=== PATIENT | male | born 1945 | race African-American/Black ===

== ENCOUNTER 2017-07-19 09:26 | Emergency (ER) | payer SELFPAY ==
[~2017-07-19] VITALS: Ht 177.8 cm; Wt 77.1 kg
[2017-07-19] MEDS ORDERED: ACETAMINOPHEN 325 MG TABLET. PO ONE (09:45)
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
[2017-07-19 10:36] VITALS: BP 137/75
[2017-07-19] MEDS ORDERED: TRAM50TA PO (10:38)
== END 2017-07-19 11:00 | disposition home or self-care (01) ==
LOC: ER 09:26
DX: S29.9XXA Unspecified injury of thorax, initial encounter (principal); S93.402A Sprain of unspecified ligament of left ankle, initial encounter; F10.20 Alcohol dependence, uncomplicated; F12.10 Cannabis abuse, uncomplicated; V49.49XA Driver injured in collision with other motor vehicles in traffic accident, initial encounter; Y93.89 Activity, other specified; Y99.8 Other external cause status; Y92.488 Other paved roadways as the place of occurrence of the external cause
CPT/HCPCS: 71101; 73610; 99284

== ENCOUNTER 2018-06-22 14:58 | Emergency (ER) | payer OTHER ==
[~2018-06-22] VITALS: Ht 180.3 cm; Wt 78.0 kg
[~2018-06-22 14:58] MED LIST: TRAM50TA PO
[2018-06-22 16:06] VITALS: BP 160/85
[2018-06-22] MEDS ORDERED: PENI500T PO (17:10)
[2018-06-22] MEDS ORDERED: ACET-704 PO (17:10)
--- NOTE | 2018-06-22 17:10 | PHYS DOC ---
Past Medical History Past Medical History: Hypertension Additional Past Medical Histor: Brain Aneurysm Past Surgical History: Hip Replacement Additional Past Surgical Histo: aneurysm surgery Alcohol Use: Occasionally Drug Use: Marijuana Adult General Chief Complaint Chief Complaint: DENTAL PROBLEM HPI HPI Patient is a 73 year old [f__sex] who presents with [] Review of Systems Review of Systems Constitutional: Denies fever or chills [] Eyes: Denies change in visual acuity, redness, or eye pain [] HENT: Denies nasal congestion or sore throat [] Respiratory: Denies cough or shortness of breath [] Cardiovascular: No additional information not addressed in HPI [] GI: Denies abdominal pain, nausea, vomiting, bloody stools or diarrhea [] : Denies dysuria or hematuria [] Musculoskeletal: Denies back pain or joint pain [] Integument: Denies rash or skin lesions [] Neurologic: Denies headache, focal weakness or sensory changes [] Endocrine: Denies polyuria or polydipsia [] All other systems were reviewed and found to be within normal limits, except as documented in this note. Allergies Allergies Allergies Coded Allergies Type Severity Reaction Last Updated Verified No Known Drug Allergies 04/13/14 No Physical Exam Physical Exam Constitutional: Well developed, well nourished, no acute distress, non-toxic appearance. [] HENT: Normocephalic, atraumatic, bilateral external ears normal, oropharynx moist, no oral exudates, nose normal. [] Eyes: PERRLA, EOMI, conjunctiva normal, no discharge. [] Neck: Normal range of motion, no tenderness, supple, no stridor. [] Cardiovascular:Heart rate regular rhythm, no murmur [] Lungs & Thorax: Bilateral breath sounds clear to auscultation [] Abdomen: Bowel sounds normal, soft, no tenderness, no masses, no pulsatile masses. [] Skin: Warm, dry, no erythema, no rash. [] Back: No tenderness, no CVA tenderness. [] Extremities: No tenderness, no cyanosis, no clubbing, ROM intact, no edema. [] Neurologic: Alert and oriented X 3, normal motor function, normal sensory function, no focal deficits noted. [] Psychologic: Affect normal, judgement normal, mood normal. [] Current Patient Data Vital Signs Vital Signs Date Time Temp Pulse Resp B/P (MAP) Pulse Ox O2 Delivery O2 Flow Rate FiO2 06/22/18 16:06 97.9 81 18 160/85 (110) 98 Room Air 97.9 EKG EKG [] Radiology/Procedures Radiology/Procedures [] Course & Med Decision Making Course & Med Decision Making Pertinent Labs and Imaging studies reviewed. (See chart for details) [] Dragon Disclaimer Dragon Disclaimer This electronic medical record was generated, in whole or in part, using a voice recognition dictation system. Departure Departure Impression: Primary Impression: Pain due to dental caries Additional Impression: Infected dental caries Disposition: HOME, SELF-CARE Condition: STABLE Referrals: ROSALINDA SOTO MD (PCP) Patient Instructions: Dental Caries, Dental Pain, [id number] Additional Instructions: Fill prescriptions and use as directed. Follow up with dentist as discussed, return to ER if symptoms worsen. Scripts Penicillin V Potassium (PENICILLIN V POTASSIUM) 500 Mg Tablet 1 TAB PO QID, #40 TAB Prov: NITIN BAUER APRN 06/22/18 Acetaminophen With Codeine (TYLENOL WITH CODEINE #3 TABLET) 1 Each Tablet 1 TAB PO PRN Q6HRS PRN for PAIN for 3 Days, #12 TAB 0 Refills Prov: NITIN BAUER APRN 06/22/18 Problem Qualifiers NITIN BAUER [employer] Jun 22, 2018 17:10
== END 2018-06-22 17:15 | disposition home or self-care (01) ==
LOC: ER 14:58
DX: K02.9 Dental caries, unspecified (principal); I10 Essential (primary) hypertension; Z96.649 Presence of unspecified artificial hip joint
CPT/HCPCS: 99283

== ENCOUNTER 2020-09-06 08:48 | Emergency (ER) | payer MEDICARE, OTHER ==
[~2020-09-06] VITALS: Ht 180.3 cm; Wt 76.3 kg
[~2020-09-06 08:48] MED LIST changes: +ACET-704 PO; +PENI500T PO
[2020-09-06 08:50] VITALS: BP 131/77
[2020-09-06] MEDS ORDERED: PENI500T PO (09:02)
[2020-09-06] MEDS ORDERED: TRAM50TA PO (09:02)
--- NOTE | 2020-09-06 09:02 | ED.ADGEN ---
Past Medical History Past Medical History: Hypertension Additional Past Medical Histor: Brain Aneurysm Past Surgical History: Hip Replacement Additional Past Surgical Histo: aneurysm surgery Smoking Status: Light Tobacco Smoker Alcohol Use: Occasionally Drug Use: Marijuana General Adult EDM: Chief Complaint: DENTAL PROBLEM HPI: HPI: Patient is a 75 year old male who arrives ambulatory to the emergency department complaining of ongoing dental pain. Patient had some dental work done within the last 6 months for poor dental hygiene which included extractions. Patient states however he has had continued pain and has a consultation with an oral surgeon awaiting him once he secures dental insurance. The patient reports that his pain is specifically in the maxillary segment of his mouth of the left side. The patient states that when the pain happens it is sharp and debilitating. He denies any trauma. He further denies any fevers or swelling. He is awake, alert and nontoxic-appearing. Review of Systems: Review of Systems: Constitutional: Denies fever or chills. [] Eyes: Denies change in visual acuity. [] HENT: Reports of dental pain and poor dental hygiene. Denies nasal congestion or sore throat. [] Respiratory: Denies cough or shortness of breath. [] Cardiovascular: Denies chest pain or edema. [] GI: Denies abdominal pain, nausea, vomiting, bloody stools or diarrhea. [] : Denies dysuria. [] Musculoskeletal: Denies back pain or joint pain. [] Integument: Denies rash. [] Neurologic: Denies headache, focal weakness or sensory changes. [] Endocrine: Denies polyuria or polydipsia. [] Lymphatic: Denies swollen glands. [] Psychiatric: Denies depression or anxiety. [] Allergies: Allergies: Allergies Coded Allergies Type Severity Reaction Last Updated Verified No Known Drug Allergies 04/13/14 No Physical Exam: PE: Constitutional: Well developed, well nourished, no acute distress, non-toxic appearance. [] HENT: Patient has poor dental hygiene with multiple dental caries. There are several eroded teeth in the maxillary segment which are tender upon palpation. There is no swelling of the gums or facial structures. Normocephalic, atraumatic, bilateral external ears normal, oropharynx moist, no oral exudates, nose normal. [] Eyes: PERRLA, EOMI, conjunctiva normal, no discharge. [] Neck: Normal range of motion, no tenderness, supple, no stridor. [] Cardiovascular:Heart rate regular rhythm, no murmur [] Lungs & Thorax: Bilateral breath sounds clear to auscultation [] Abdomen: Bowel sounds normal, soft, no tenderness, no masses, no pulsatile masses. [] Skin: Warm, dry, no erythema, no rash. [] Back: No tenderness, no CVA tenderness. [] Extremities: No tenderness, no cyanosis, no clubbing, ROM intact, no edema. [] Neurologic: Alert and oriented X 3, normal motor function, normal sensory function, no focal deficits noted. [] Psychologic: Affect normal, judgement normal, mood normal. [] EKG: EKG: [] Heart Score: Risk Factors: Risk Factors: DM, Current or recent (<one month) smoker, HTN, HLP, family history of CAD, obesity. Risk Scores: Score 0 - 3: 2.5% MACE over next 6 weeks - Discharge Home Score 4 - 6: 20.3% MACE over next 6 weeks - Admit for Clinical Observation Score 7 - 10: 72.7% MACE over next 6 weeks - Early Invasive Strategies Radiology/Procedures: Radiology/Procedures: [] Course & Med Decision Making: Course & Med Decision Making Pertinent Labs and Imaging studies reviewed. (See chart for details) [] Dragon Disclaimer: Dragon Disclaimer: This electronic medical record was generated, in whole or in part, using a voice recognition dictation system. Departure Departure Impression: Primary Impression: Pain due to dental caries Disposition: ADMITTED INPT THIS HOSP Condition: GOOD Referrals: ROSALINDA SOTO MD (PCP) Patient Instructions: Dental Caries-Brief Scripts Penicillin V Potassium (PENICILLIN V POTASSIUM) 500 Mg Tablet 2 TAB PO Q12HR, #40 TAB Prov: FELI TESFAYE DO 09/06/20 Tramadol Hcl (TRAMADOL HCL) 50 Mg Tablet 50 MG PO Q6HRS PRN for PAIN for 3 Days, #12 TAB Prov: FELI TESFAYE DO 09/06/20 FELI TESFAYE DO Sep 06, 2020 09:02
== END 2020-09-06 09:03 | disposition home or self-care (01) ==
LOC: ER 08:48
DX: K02.9 Dental caries, unspecified (principal); I10 Essential (primary) hypertension; Z72.0 Tobacco use
CPT/HCPCS: 99283